=== PATIENT | male | born 1975 | race Caucasian/White ===

== ENCOUNTER → 2018-06-03 08:35 | Outpatient (CLI) | payer OTHER | END | disposition home or self-care (01) | LOC: D.HCCARDIO 08:35 | PROVIDERS: ATTEND Internal Medicine Cardiovascular Disease | DX: I20.9 Angina pectoris, unspecified (principal) ==

== ENCOUNTER 2018-06-14 11:30 | Outpatient (CLI) | payer OTHER ==
[~2018-06-14] VITALS: Ht 165.1 cm; Wt 84.1 kg
--- NOTE | ~2018-06-14 | HEMODYNAMI ---
PATIENT:AGUS RIOS MEDICAL RECORD: [id number] : 71 LOCATION:[facility] ADMISSION DATE: 06/14/18 Generatedon:06/14/201816:47 Patient name: AGUS RIOS Patient #: [id number] SSN: : 1975 Date of study: 06/14/2018 Page: Of Hemodynamic Procedure Report Patient Data Patient Demographics Procedure consent was obtained First Name: AGUS Gender: Male Last Name: GABRIEL : 1975 Patient #: [id number] Age: 43 year(s) Race: Unknown Additional ID: [id number] Contact details [address]: [address] [place] [address] State: [place] City: [place] Zip code: [address] Past Medical History Allergies: No known allergies Admission Admission Data Admission Date: 06/14/2018 Admission Time: 11:30 Procedure Procedure Types Cath Procedure Diagnostic Procedure LHC LHC w/Coronaries Procedure Description Procedure Date Procedure Date: 06/14/2018 Procedure Start Time: 16:24 Procedure End Time: 16:41 Procedure Staff Name Function Tomas Price MD Performing Physician Hannah Villeda RT Scrub Josee Lucero RT Monitor Tod Lugo RT Bone Grinder Eduar Coppola RN Nurse Procedure Data Cath Procedure Fluoroscopy Diagnostic fluoroscopy Total fluoroscopy Time: 173 time: 173 min min Diagnostic fluoroscopy Total fluoroscopy dose: 173 dose: 173 mGy mGy Contrast Material Contrast Material Type Amount (ml) Isovue 300 43 Entry Location Entry Primary Successful Side Size Upsize Upsize Entry Closure Gonzales ccessful Closure Location (Fr) 1 (Fr) 2 (Fr) Remarks Device Remarks Radial Right 6 Fr Mechanical artery Short Compression Femoral Right 5 Fr Exoseal artery Estimated blood loss: 5 ml Diagnostic catheters Device Type Used For End Catheter Placement DIAGNOSTIC Luis 110cm Multi-vessel 5Fr catheter ([id number]) Angiography DIAGNOSTIC Holstein 110cm 5 Left Coronary Fr catheter ([id number]) Angiography Procedure Complications No complications Procedure Medications Medication Administration Route Dosage 0.9% NaCl I.V. 100 ml/hr Oxygen etCO2 Nasal cannula 2 l/min Heparin Flush Bag added to field 2 bags (1000units/500ml NS) Lidocaine 2% added to field 20 Radial Cocktail added to field 1 syringe (Verapomil 2mg/Nitro 400mcg/Heparin 1500units) Versed I.V. 2 mg Fentanyl I.V. 100 mcg Versed I.V. 2 mg Fentanyl I.V. 50 mcg Radial Cocktail I.A. 1 syringe (Verapomil 2mg/Nitro 400mcg/Heparin 1500units) Fentanyl I.V. 50 mcg Hemodynamics Rest Heart Rate: 78 (bpm) Pressure Samples Time Site Value (mmHg) Purpose Heart Use Rate(bpm) 16:29 LV 141/-7,10 Snapshot 102 Gradients Valve Time Site Site Mean SEP/DFP Peak To Heart Use 1 2 (mmHg) (sec/min) Peak Rate (mmHg) (bpm) Aortic 16:29 LV AO 91 Snapshots Pre Cath Intra NCS Post Cath Vital Signs Time Heart Resp SPO2 etCO2 NIBP (mmHg) Rhythm Pain Sedation Rate (ipm) (%) (mmHg) Status Level (bpm) 16:13:04 84 24 98 0 136/87(102) NSR 0 (11) 10(A) , No pain 16:17:16 76 16 96 0 132/83(101) NSR 0 (11) 10(A) , No pain 16:21:32 75 15 92 0 120/75(95) NSR 0 (11) 10(A) , No pain 16:25:40 73 16 93 0 128/91(103) NSR 0 (11) 10(A) , No pain 16:29:56 93 11 90 0 104/70(86) NSR 0 (11) 9(A) , No pain 16:34:02 80 12 92 0 118/74(91) NSR 0 (11) 10(A) , No pain 16:38:13 73 11 92 0 115/74(94) NSR 0 (11) 10(A) , No pain Medications Time Medication Route Dose Verified Delivered Reason Notes Effectiveness by by 16:17:38 0.9% NaCl I.V. 100 Cecilio Hernandes Per ml/hr Jayjay Ro RN physician RN 16:17:48 Oxygen etCO2 2 l/min Cecilio Hernandes for low 02 Nasal Jayjay Ro RN sats cannula RN 16:18:04 Heparin Flush added 2 bags Eduar Eduar used for Bag to Lorigan Lorigan procedure (1000units/500ml field RN RN NS) 16:18:16 Lidocaine 2% added 20ml Eduar Eduar for local to vial Lorigan Lorigan anesthetic field RN RN 16:18:26 Radial Cocktail added 1 Eduar Eduar used for (Verapomil to syringe Lorigan Anat procedure 2mg/Nitro field RN RN 400mcg/Heparin 1500units) 16:18:40 Versed I.V. 2 mg Eduar Eduar for sedation Anat Coppola RN RN 16:18:51 Fentanyl I.V. 100 mcg Eduar Eduar for sedation Anat Coppola RN RN 16:26:05 Versed I.V. 2 mg Eduar Eduar for sedation Anat Coppola RN RN 16:26:13 Fentanyl I.V. 50 mcg Eduar Eduar for sedation Anat Coppola RN RN 16:28:16 Radial Cocktail I.A. 1 Eduar Tomas for (Verapomil syringe Anat Price MD vasodilation 2mg/Nitro RN 400mcg/Heparin 1500units) 16:34:59 Fentanyl I.V. 50 mcg Eduar Tomas for sedation Anat Price MD customer service advocate Log Time Note 15:03:19 Patient allergic to No known allergies 15:57:57 Signed procedure consent form obtained from patient. 15:57:58 Diagnostic Cath status Elective 15:57:59 Time tracking: Regular hours (M-F 7:00 - 5:00) 15:58:02 Plan of Care:Hemodynamics will remain stable., Cardiac rhythm will remain stable., Comfort level will be maintained., Respiratory function will remain adequate., Patient/ family verbilizes understanding of procedure., Procedure tolerated without complication., Recovers from procedure without complications.. 15:58:06 Tod Lugo RT(R) sent for patient. Start room use. 16:06:35 Patient received from Pre/Post Procedure Room to CCL 3 Alert and oriented. Tansferred to table in Supine position. 16:06:37 Warm blankets applied, and iron hugger turned on for patient comfort. 16:06:37 Correct patient and procedure confirmed by team. 16:06:38 ECG and BP/O2 sat monitors applied to patient. 16:11:56 Vital chart was started 16:13:56 Baseline sample Acquired. 16:14:00 Rhythm: sinus rhythm 16:14:03 Full Disclosure recording started 16:14:10 H&P Date Dictated: 06/14/2018 Within 30 days and on chart., H&P Addendum completed by physician on day of procedure. (MUST COMPLETE FOR ALL OUTPATIENTS). 16:14:12 Pre-procedure instructions explained to patient. 16:14:12 Pre-op teaching completed and patient verbalized understanding. 16:14:14 Family in waiting room. 16:14:17 Patient NPO since Midnight. 16:14:18 Is the patient allergic to Iodine/contrast media? No. 16:14:19 Was the patient premedicated? No 16:14:33 Is patient on blood thinner?No 16:14:35 Patient diabetic? No. 16:14:37 Previous problem with sedation/anesthesia? No ? 16:14:39 Snore? No 16:14:41 Sleep apnea? No 16:14:42 Deviated septum? No 16:14:42 Opens mouth fully? Yes 16:14:43 Sticks out tongue? Yes 16:14:45 Airway obstruction? No ? 16:14:47 Dentures? No ? 16:14:53 Pre procedure: right dorsailis pedis pulse 2+ Normal; easily identifiable; not easily obliterated 16:14:56 Pre procedure: left dorsailis pedis pulse 2+ Normal; easily identifiable; not easily obliterated 16:14:58 Patient pain scale 0/10 ?. 16:15:05 IV patent on arrival in left forearm with 0.9% NaCl at [facility]. 16:15:08 Lab results completed and on chart. 16:15:13 Right Radial & Right Groin area was prepped with chlora-prep and draped in sterile fashion 16:15:14 Alarms reviewed by R. N. 16:15:15 Sharps counted by scrub and verified by R.N. 16:17:01 Physician arrived 16:17:01 --------ALL STOP TIME OUT------ 16:17:02 Final Timeout: patient, procedure, and site verified with staff and physician. All members of the team are in agreement. 16:17:04 Right Radial & Right Groin site verified by team. 16:17:13 Fire Safety Assessment: A--An alcohol-based skin anteseptic being used preoperatively., C--Open oxygen or nitrous oxide is being used., D--An ESU, laser, or fiber-optic light is being used. 16:17:24 Physical assessment completed. ASA score P 2 - A patient with mild systemic disease as per Tomas Price MD. 16:17:28 Sedation plan: IV Moderate Sedation Medication:Versed, Fentanyl 16:17:38 0.9% NaCl 100 ml/hr I.V. was administered by Cecilio Ro RN; Per physician; 16:17:48 Oxygen 2 l/min etCO2 Nasal cannula was administered by Cecilio Ro RN; for low 02 sats; 16:17:57 Use device set Radial Dx or PCI 16:17:58 ACIST Syringe (90766) opened to sterile field. 16:17:58 Medline Cath Pack ([id number]) opened to sterile field. 16:17:59 Bag Decanter (2002S) opened to sterile field. 16:17:59 DIAGNOSTIC WIRE .035 260cm J wire (285270) opened to sterile field. 16:18:00 ACIST Hand Control (58756) opened to sterile field. 16:18:00 ACIST Manifold (12959) opened to sterile field. 16:18:01 Tegaderm 4 x 4 (1626W) opened to sterile field. 16:18:01 MBrace Wrist Support ([id number]) opened to sterile field. 16:18:03 NEEDLE Cook 21G 4cm Radial (W87685) opened to sterile field. 16:18:04 Heparin Flush Bag (1000units/500ml NS) 2 bags added to field was administered by Eduar Coppola RN; used for procedure; 16:18:04 SHEATH 6FR Slender (82-1060) opened to sterile field. 16:18:16 Lidocaine 2% 20ml vial added to field was administered by Eduar Coppola RN; for local anesthetic; 16:18:26 Radial Cocktail (Verapomil 2mg/Nitro 400mcg/Heparin 1500units) 1 syringe added to field was administered by Eduar Coppola RN; used for procedure; 16:18:40 Versed 2 mg I.V. was administered by Eduar Coppola RN; for sedation; 16:18:51 Fentanyl 100 mcg I.V. was administered by Eduar Coppola RN; for sedation; 16:22:59 Procedure started. 16:24:58 Local anesthetic to right radial artery with Lidocaine 2% by Tomas Price MD.INITIAL ACCESS ONLY 16:26:05 Versed 2 mg I.V. was administered by Eduar Coppola RN; for sedation; 16:26:13 Fentanyl 50 mcg I.V. was administered by Eduar Coppola RN; for sedation; 16:27:11 A 6 Fr Short sheath was inserted into the Right Radial artery 16:28:02 A DIAGNOSTIC Luis 110cm 5Fr catheter (727287) was advanced over the wire and used for Multi-vessel Angiography. 16:28:16 Radial Cocktail (Verapomil 2mg/Nitro 400mcg/Heparin 1500units) 1 syringe I.A. was administered by Tomas Price MD; for vasodilation; 16:29:20 LV hemodynamics recorded. 16:29:21 LV gram done using DELUCA 16:29:24 Injector settings: Ml/sec: 5, Volume: 15, 16:29:38 EF : 60 % 16:31:40 Catheter removed. 16:31:49 A DIAGNOSTIC Holstein 110cm 5 Fr catheter (299076) was advanced over the wire and used for Left Coronary Angiography. 16:32:52 Catheter removed. unable to cannulate vessel. 16:33:04 DIAGNOSTIC Multipack 5Fr catheter set ([id number]) opened to sterile field. 16:33:05 SHEATH 5FR [place] (VGN810) opened to sterile field. 16:33:13 Local anesthetic to right femoral artery with Lidocaine 2% by Tomas Price MD.ADDITIONAL ACCESS 16:33:25 A 5 Fr sheath was inserted into the Right Femoral artery 16:34:59 Fentanyl 50 mcg I.V. was administered by Tomas Price MD; for sedation; 16:36:14 5 Fr jl 4 guide catheter was inserted over the wire 16:36:23 LCA angiography performed. 16:36:26 Injector settings: Ml/sec: 3, Volume: 6, 16:37:42 Catheter removed. 16:37:49 5 Fr 3drc guide catheter was inserted over the wire 16:38:56 RCA angiography performed. 16:38:59 Injector settings: Ml/sec: 3, Volume: 6, 16:39:17 Catheter removed. 16:39:45 EXOSEAL 5Fr (EX500) opened to sterile field. 16:39:46 TR BAND Standard ([id number]) opened to sterile field. 16:39:57 Sheath removed intact; hemostasis achieved with Exoseal to the Right Femoral artery. 16:40:03 Sheath removed intact; hemostasis achieved with Mechanical Compression to the Right Radial artery. 16:40:05 Procedure ended.(Physican Out) 16:40:14 Fluoroscopy time 173.00 minutes. 16:40:21 Fluoroscopy dose: 173 mGy 16:40:21 Flurop Dose total: 173 16:40:26 Contrast amount:Isovue 300 43ml. 16:40:28 Sharps counted by scrub and verified by R.N. 16:40:35 TR band inflated with 11cc of air. 16:40:37 Insertion/operative site no bleeding no hematoma. 16:40:42 Post-op/insertion site Right Femoral artery dressed using a 4 x 4 and Tegaderm. 16:40:53 Post right radial artery:stable 16:40:55 Post Procedure Pulses reassessed and unchanged 16:40:57 Post procedure rhythm: unchanged. 16:41:00 Estimated blood loss: 5 ml 16:41:01 Post procedure instruction explained to patient.Patient verbalizes understanding. 16:41:02 Patient needs reinforcement of post procedure teaching. 16:41:10 Procedure and supply charges have been captured, reviewed, submitted and are correct. 16:41:15 Procedure Complication : No complications 16:41:17 Vital chart was stopped 16:41:19 See physician's report for complete and final results. 16:41:27 Report given to Pre/Post Procedure Room. 16:41:33 Patient transfered to Pre/Post Procedure Room with Stretcher. 16:41:35 Procedure ended. 16:41:35 Full Disclosure recording stopped 16:41:46 End room use (Document Last) Device Usage Item Name Manufacture Quantity Catalog Hospital Part Current Minimal Lot# / Number Charge Number Stock Stock Serial# Code ACIST Acist 1 28101 [id number] 110389 575779 20 Syringe NearVerse (36833) Systems Inc Medline Medline 1 [id number] 350480 76267 252395 5 Cath Pack ([id number]) Bag Microtek 1 171133 80913 101448 5 Decanter Medical Inc. (2002S) DIAGNOSTIC [facility] [place] 1 690640 618411 499998 983207 30 WIRE .035 260cm J wire (113293) ACIST Hand Acist 1 77694 150260 434804 092171 5 Control Medical (88539) Systems Inc ACIST Acist 1 16123 512471 302535 298153 5 Manifold Medical (62936) Systems Inc Tegaderm 4 3M 1 1626W 590853 299860 973661 5 x 4 (1626W) MBrace Advanced 1 140-0250-00 460649 96704 680417 5 Wrist Vascular Support Dynamics ([id number]) NEEDLE Rogate Cook Medical 1 W71182 762024 017035 349716 5 21G 4cm Radial (X91882) SHEATH 6FR Terumo 1 [id number] 734429 204782 443788 5 Slender (80-1060) DIAGNOSTIC Terumo 1 40-5023 771129 729078 602768 5 Luis 110cm 5Fr catheter (990739) DIAGNOSTIC Terumo 1 40-5013 774221 777474 912298 5 Holstein 110cm 5 Fr catheter (369834) DIAGNOSTIC Cardinal 1 KE4263 995359 59776 794811 30 Multipack Health 5Fr catheter set (FE8115) SHEATH 5FR Terumo 1 AOE333 796413 667452 446281 5 [place] (YAB029) EXOSEAL 5Fr Cardinal 1 EX500 900255 018474 334811 10 (EX500) Health TR BAND Terumo 1 [id number] 355926 462522 662367 40 Standard ([id number]) Signature Audit [place] Stage Time Signature Unsigned Intra-Procedure 06/14/2018 Josee Lucero 4:47:06 PM RT(R) Signatures Monitor : Josee Lucero RT Signature : Date : Time : [facility] [address] [place] [address]
[2018-06-14] MEDS ORDERED: FENOFIBRATE54 MG PO (12:02)
[2018-06-14] MEDS ORDERED: LISINOPRIL-HCT1 EAC7 PO (12:02)
[2018-06-14] MEDS ORDERED: ASPIRIN81 MG PO (12:03)
[2018-06-14] MEDS ORDERED: ZOLOFT50 MG PO (12:03)
[2018-06-14] MEDS ORDERED: CRESTOR20 MG PO (12:03)
[2018-06-14 12:20] VITALS: BP 131/79; Ht 165.1 cm; Wt 84.1 kg
[2018-06-14 12:21] LABS: BASOPHILS 0.2 % (0-2); EOSINOPHILS 1.2 % (0-7); HEMATOCRIT 44.9 % (42.0-54.0); HEMOGLOBIN 15.7 g/dL (13.5-17.5); LYMPHOCYTES 50.6 % (15-50); MCH 30.7 pg (26.0-34.0); MCV 87.7 fL (80.0-100.0); MEAN PLATELET VOLUME 10.7 fL (7.4-10.4); MONOCYTES 10.1 % (2-11); NEUTROPHILS 37.9 % (40-80); PLATELET COUNT 251 10x3/uL (130-400); RBC 5.12 10x6/uL (4.20-6.10); RDW 11.9 % (11.5-14.5); WBC 5.1 10x3/uL (4.8-10.8)
[2018-06-14 12:29] LABS: CALC OSMOLALITY 271 mosm/kg (275-300); CALCIUM 9.2 mg/dL (8.5-10.1); CHLORIDE - SERUM 100 mmol/L (98-107); CREATININE - SERUM 1.1 mg/dL (0.6-1.3); GLUCOSE 90 mg/dL (74-106); POTASSIUM - SERUM 3.6 mmol/L (3.5-5.1); SODIUM 135 mmol/L (136-145); UREA NITROGEN 17 mg/dL (7-18); eGFR NON AFRICAN AMERICAN 77 mL/min (90-120)
--- NOTE | 2018-06-14 17:05 | NUR ---
PATIENT RESTING. FAMILY AT BEDSIDE. VSS ON 1L NC. RIGHT TR BAND IN PLACE, NO S/S OF BLEEDING OR HEMATOMA. RIGHT GROIN DRESSING IS CDI, NO S/S OF BLEEDING OR HEMATOMA. NO C/O PAIN, NUMBNESS, OR TINGLING.
--- NOTE | 2018-06-14 17:35 | NUR ---
PATIENT RESTING, VSS ON 1L NC. RIGHT TR BAND IN PLACE, NO S/S OF BLEEDING OR HEMATOMA. RIGHT GROIN DRESSING IS CDI, NO S/S OF BLEEDING OR HEMATOMA. NO C/O PAIN, NUMBNESS, OR TINGLING.
--- NOTE | 2018-06-14 18:00 | NUR ---
BEGINNING AIR REMOVAL PROTOCOL FOR TR BAND, NO S/S OF BLEEDING OR HEMATOMA. HEAD OF BED ELEVATED TO 30 DEGREES, RIGHT GROIN DRESSING IS CDI, NO S/S OF BLEEDING OR HEMATOMA.
--- NOTE | 2018-06-14 18:30 | NUR ---
PATIENT AWAKE, HEAD OF BED AT 90 DEGREES. RIGHT GROIN DRESSING IS CDI, NO S/S OF BLEEDING OR HEMATOMA. FOLLOWING AIR REMOVAL PROTOCOL FOR TR BAND, NO S/S OF BLEEDING OR HEMATOMA. PATIENT EATING TURKEY SANDWICH AND DRINKING JUICE, NO N/V. NO C/O PAIN, NUMBNESS, OR TINGLING. VSS ON ROOM AIR.
--- NOTE | 2018-06-14 19:00 | NUR ---
IV REMOVED. REMAINING AIR REMOVED FROM TR BAND, NO S/S OF BLEEDING OR HEMATOMA. RIGHT GROIN DRESSING IS CDI, NO S/S OF BLEEDING OR HEMATOMA. EDUCATION GIVEN TO PATIENT AND FAMILY MEMBER REGARDING DISCHARGE INSTRUCTIONS, BOTH VOICE UNDERSTANDING.
--- NOTE | 2018-06-14 19:10 | NUR ---
RIGHT RADIAL DRESSING IS CDI, NO S/S OF BLEEDING OR HEMATOMA. RIGHT GROIN DRESSING IS CDI, NO S/S OF BLEEDING OR HEMATOMA. PATIENT VOIDED WITHOUT DIFFICULTY. PATIENT TRANSPORTED TO CAR WITH FAMILY MEMBER DRIVING, ALL BELONGINGS WITH PATIENT.
== END 2018-06-14 19:10 ==
LOC: D.CATH 11:30
PROVIDERS: ATTEND Internal Medicine Cardiovascular Disease
DX: I20.9 Angina pectoris, unspecified (principal); Z01.812 Encounter for preprocedural laboratory examination